=== PATIENT | male | born 1980 | race Caucasian/White ===

== ENCOUNTER 2016-05-26 20:40 | Emergency (ER) | payer OTHER ==
[2016-05-26] MEDS: IPRATROPIUM/ALBUTEROL (0.5MG/3MG) NEB INH ONE (20:51)
--- NOTE | 2016-05-26 20:55 | Emergency Department Record ---
History of Present Illness - General Chief Complaint: Shortness of breath Stated Complaint: MATHIEU, EXPOSURE Time Seen by Provider: 05/26/16 20:49 Source: Patient, Family Mode of Arrival: Ambulatory Limitations: No limitations - History of Present Illness Initial Comments: 35 yo male presents with cough and shortness of breath. He was working in an enclosed space spraying foam insulation. No other chemicals. He was not using a mask. He developed cough and shortness of breath. Non productive. No history of underlying lung disease. No asthma. He is a smoker. No recent illness. MD Complaint: Cough, Shortness of breath Onset/Timin -: Hour(s) Severity: Mild Quality: Other Consistency: Other Improves With: Other Worsens With: Coughing Known History Of: Other Associated Symptoms: Cough Treatments Prior to Arrival: None - Related Data Home Oxygen Therapy: No Previous Rx's Medication Instructions Recorded Prednisone [Prednisone 20Mg] 20 mg PO BID #10 tab 05/26/16 Allergies Allergy/AdvReac Type Severity Reaction Status Date / Time No Known Drug Allergies Allergy Verified 01/28/14 23:27 Travel Screening - Travel/Exposure Within Last 30 Days Have you traveled within the last 30 days?: No - Travel/Exposure Within Last Year Have you traveled outside the [place] in the last year?: No - Additonal Travel Details Have you been exposed to anyone with a communicable illness?: No - Travel Symptoms Symptom Screening: None Review of Systems Constitutional: Denies: Chills, Fever, Malaise, Weakness Eyes: Denies: Eye discharge, Eye pain, Photophobia ENT: Denies: Congestion, Ear pain, Epistaxis, Throat pain Respiratory: Reports: Cough, Dyspnea, Wheezes. Denies: Hemoptysis, Stridor Cardiovascular: Denies: Chest pain, Palpitations, Syncope Endocrine: Denies: Fatigue, Polydipsia, Polyuria Gastrointestinal: Denies: Abdominal pain, Diarrhea, Nausea, Vomiting Genitourinary: Denies: Dysuria, Frequency, Hematuria Musculoskeletal: Denies: Arthralgia, Back pain, Myalgia Skin: Denies: Bruising, Change in color, Pruritus Neurological: Denies: Confusion, Headache Psychiatric: Denies: Anxiety Hematological/Lymphatic: Denies: Blood Clots, Easy bleeding, Easy bruising, Swollen glands Past Medical History - SOCIAL HISTORY Smoking Status: Current every day smoker Alcohol Use: None Drug Use: None - RESPIRATORY Hx Respiratory Disorders: No - CARDIOVASCULAR Hx Cardio Disorders: No - NEURO Hx Neuro Disorders: No - GI Hx GI Disorders: No - Hx Genitourinary Disorders: No - ENDOCRINE Hx Endocrine Disorders: No - MUSCULOSKELETAL Hx Musculoskeletal Disorders: Yes Comment:: MS - PSYCH Hx Psych Problems: No - HEMATOLOGY/ONCOLOGY Hx Hematology/Oncology Disorders: No Family Medical History Any Significant Family History?: No Physical Exam - General General Appearance: Alert, Oriented x3, Cooperative, No acute distress Limitations: No limitations - Head Head exam: Atraumatic, Normal inspection - Eye Eye exam: Normal appearance, PERRL. negative: Conjunctival injection, Periorbital swelling, Scleral icterus - ENT ENT exam: Normal exam, Mucous membranes moist Ear exam: Normal external inspection Nasal Exam: Normal inspection Mouth exam: Normal external inspection Teeth exam: Normal inspection Throat exam: Normal inspection - Neck Neck exam: Normal inspection, Full ROM. negative: Tenderness - Respiratory Respiratory exam: Normal lung sounds bilaterally. negative: Accessory muscle use, Decreased breath sounds, Prolonged expiratory, Respiratory distress, Rhonchi, Stridor, Wheezes - Cardiovascular Cardiovascular Exam: Regular rate, Normal rhythm, Normal heart sounds Peripheral Pulses: 2+: Radial (R), Radial (L) - GI/Abdominal GI/Abdominal exam: Soft. negative: Tenderness - Rectal Rectal exam: Deferred - exam: Deferred - Extremities Extremities exam: Normal inspection, Full ROM, Normal capillary refill. negative: Tenderness - Back Back exam: Reports: Normal inspection, Full ROM. Denies: Muscle spasm, Rash noted, Tenderness - Neurological Neurological exam: Alert, Normal gait, Oriented X3 - Psychiatric Psychiatric exam: Normal affect, Normal mood. negative: Agitated, Anxious - Skin Skin exam: Dry, Intact, Normal color, Warm Course Vital Signs 05/26/16 20:45 Temperature 98.4 F Pulse Rate 86 Respiratory 20 Rate Blood Pressure 113/92 Pulse Ox 96 - Reevaluation(s) Reevaluation #1: The patient was seen and examined NAD Clear lungs No hypoxia 05/26/16 20:53 Reevaluation #2: On recheck the patient is doing well oxygen saturation 97% on room air HR 92 mild cough occasionally 05/26/16 21:12 Reevaluation #3: The patient is still doing very well DC home with Tessalon and Prednisone We discussed no smoking and reasons to return to the ED 05/26/16 22:00 Disposition Disposition: Discharge Clinical Impression: Exposure to chemical inhalation Disposition: Home, Self-Care Condition: (1) Good Instructions: Bronchospasm (ED) Additional Instructions: Avoid smoking Return if short of breath or persistent cough Prescriptions: Prednisone [Prednisone 20Mg] 20 mg PO BID #10 tab Forms: Patient Portal Access Time of Disposition: 22:01
[2016-05-26] MEDS: PREDNISONE 20 MG TAB PO ONE (21:00)
[2016-05-26] MEDS: BENZONATATE 100 MG CAPSULE PO ONE (21:14)
== END 2016-05-26 22:06 | disposition home or self-care (01) ==
LOC: ER 20:40
DX: T65.891A Toxic effect of other specified substances, accidental (unintentional), initial encounter (principal); R06.02 Shortness of breath; R05 Cough; F17.210 Nicotine dependence, cigarettes, uncomplicated
CPT/HCPCS: 99283 ×2; 94640; J7512